=== PATIENT | female | born 1965 | race Two or more races ===

== ENCOUNTER 2021-10-03 09:21 | Outpatient (CLI) | payer OTHER ==
[~2021-10-03 09:21] MED LIST: ASMANEX0.24 G1 IH; BREO ELLIPTA I1 EACH; CEFTIN250 MG PO; CELESTONE0.6 MG/5 M PO; LEVSIN0.125 MG; PROAIR HFA8.5 GM IH; PULMICORT1 MG/2 ML IH; TRAMADOL HCL-AP1 TAB PO; TUSSI ORGANIDI PO; ULTRAM50 MG; URIN D.S. TABLE1 TAB PO
== END 2021-10-03 09:27 | disposition home or self-care (01) ==
LOC: RAD 09:21
PROVIDERS: ATTEND Internal Medicine Cardiovascular Disease
DX: M46.48 Discitis, unspecified, sacral and sacrococcygeal region (principal)

== ENCOUNTER 2025-04-18 10:11 | Outpatient (CLI) | payer OTHER | END 2025-04-18 10:23 | disposition home or self-care (01) | LOC: RAD 10:11 | PROVIDERS: ATTEND Internal Medicine Cardiovascular Disease | DX: M19.90 Unspecified osteoarthritis, unspecified site (principal); M46.47 Discitis, unspecified, lumbosacral region ==